=== PATIENT | male | born 1985 | race Hispanic/Latino ===

== ENCOUNTER 2021-05-05 03:51 | Emergency (ER) | payer SELFPAY ==
[~2021-05-05] VITALS: Ht 170.2 cm; Wt 84.8 kg
[2021-05-05] MEDS ORDERED: IBUPROFEN600 MG PO (04:24)
[2021-05-05] MEDS ORDERED: ALLEGRA-D 12 H1 EACH PO (04:24)
[2021-05-05] MEDS ORDERED: TESSALON PERLE100 MG PO (04:24)
[2021-05-05] MEDS ORDERED: MEDROL4 MG PO (04:24)
== END 2021-05-05 04:45 | disposition home or self-care (01) ==
LOC: ER 04:22
DX: R50.9 Fever, unspecified (principal); J06.9 Acute upper respiratory infection, unspecified; R05.9 Cough, unspecified; I10 Essential (primary) hypertension
CPT/HCPCS: 99282